=== PATIENT | male | born 1965 ===

== ENCOUNTER 2016-07-05 18:42 | Emergency (ER) | payer MEDICAID, SELFPAY ==
[2016-07-05 18:42] VITALS: BMI 22.3
[2016-07-05 19:11] VITALS: BP 105/75; PULSE 88; RESP 16; TEMP 97.7; O2SAT 100
[2016-07-05] MEDS ORDERED: Sodium Chloride 0.9% 1,000 ML IV STA (19:41)
[2016-07-05] MEDS ORDERED: Insulin Regular 100 units/ml SC STA (19:42)
[2016-07-05] MEDS ORDERED: Insulin Regular 100 units/ml ONE (20:17)
--- NOTE | 2016-07-05 20:23 | ED PDOC ---
Lower Extremity Pain/Injury Time Seen by Provider: 07/05/16 19:38 Chief Complaint (Nursing): Lower Extremity Problem/Injury Chief Complaint (Provider): Lower extremity problem/injury History Per: Patient History/Exam Limitations: no limitations Onset/Duration Of Symptoms: Days (7x) Current Symptoms Are (Timing): Still Present Severity: Moderate Additional Complaint(s): 51 year old male with a pertinent medical history of IDDM presents to the ED with complaints of lower back pain that radiates down his legs that started 1 week ago after he feel off of the toilet. He denies having any other associated symptoms including weakness, paresthesias, and incontinence. He also admits that he has been non compliant with his insulin and DM Rx for over 1x month. PMD: Ana Kim MD Past Medical History Reviewed: Historical Data, Nursing Documentation, Vital Signs Vital Signs: Last Vital Signs Temp 97.7 F 07/05/16 19:01 Pulse 88 07/05/16 19:01 Resp 16 07/05/16 19:01 BP 105/75 07/05/16 19:01 Pulse Ox 100 07/05/16 19:01 - Medical History PMH: Diabetes, Gastritis, HTN, Hypercholesterolemia, Pancreatitis Denies: CHF, Chronic Kidney Disease - Family History Family History: States: Unknown Family Hx - Social History Current smoker - smoking cessation education provided: No Alcohol: None Drugs: Denies - Home Medications Home Medications: Ambulatory Orders Medication Instructions Recorded Aspirin [Bates Aspirin] 81 mg PO DAILY #30 tab.chew 03/25/16 Gabapentin [Neurontin] 300 mg PO HS #0 cap 03/25/16 Atorvastatin [Lipitor] 40 mg PO DAILY #30 tab 06/22/16 GlipiZIDE [Glucotrol] 5 mg PO ACB #30 tab 06/22/16 Insulin Human NPH [Humulin N] 10 units SC QPM #1 vial 06/22/16 Insulin Human NPH [Humulin N] 14 units SC ACB #1 ml 06/22/16 Warfarin [Coumadin] 7.5 mg PO DAILY #15 tab 06/22/16 metFORMIN [glucOPHAGE] 500 mg PO DAILY #30 tab 06/22/16 Metformin HCl [Glucophage] 500 mg PO BID #30 tablet 07/05/16 Naproxen [Naprosyn] 500 mg PO Q12H #20 tab 07/05/16 - Allergies Allergies/Adverse Reactions: Allergies Allergy/AdvReac Type Severity Reaction Status Date / Time No Known Allergies Allergy Verified 07/05/16 19:01 Review of Systems ROS Statement: Except As Marked, All Systems Reviewed And Found Negative Genitourinary Male: Negative for: Incontinence Musculoskeletal: Positive for: Back Pain, Leg Pain (bilateral) Neurological: Negative for: Weakness, Numbness (no tingliness) Physical Exam - Reviewed Nursing Documentation Reviewed: Yes Vital Signs Reviewed: Yes - Physical Exam Appears: Positive for: Well, Non-toxic, No Acute Distress Head Exam: Positive for: ATRAUMATIC, NORMOCEPHALIC Skin: Positive for: Normal Color, Warm, Dry Cardiovascular/Chest: Positive for: Regular Rate, Rhythm, Chest Non Tender Respiratory: Positive for: Normal Breath Sounds. Negative for: Respiratory Distress Back: Negative for: Vertebral Tenderness (no spinal tenderness or deformities) Extremity: Positive for: Other (motor and sensory intact in lower extremities) Neurologic/Psych: Positive for: Alert, Oriented (3x). Negative for: Motor/ Sensory Deficits - Laboratory Results Result Diagrams: 07/05/16 20:30 07/05/16 21:41 - ECG O2 Sat by Pulse Oximetry: 100 (RA) Pulse Ox Interpretation: Normal Medical Decision Making Medical Decision Makin:38 Initial impression: lower back pain and leg pain due to injury Initial plan: * XRay LS spine with OBL * EKG * CMP * udip * CBC * humuLIN R 10units SC * sodium chloride 1,000ml IV 250mls/hr * reevaluation Scribe Attestation: Documented by Ely Walls, acting as a scribe for Kendall Tai MD. Provider Scribe Attestation: All medical record entries made by the Scribe were at my direction and personally dictated by me. I have reviewed the chart and agree that the record accurately reflects my personal performance of the history, physical exam, medical decision making, and the department course for this patient. I have also personally directed, reviewed, and agree with the discharge instructions and disposition. Disposition - Clinical Impression Clinical Impression: Low back pain, Uncontrolled diabetes mellitus - Patient ED Disposition Is Patient to be Admitted: No Counseled Patient/Family Regarding: Studies Performed, Diagnosis, Need For Followup, Rx Given - Disposition Referrals: [facility] [Outside] Disposition: Routine/Home Disposition Time: 23:27 Condition: FAIR Prescriptions: Metformin HCl [Glucophage] 500 mg PO BID #30 tablet Naproxen [Naprosyn] 500 mg PO Q12H #20 tab Instructions: Back Pain (ED), Diabetes Mellitus Type 2 in Adults (ED) Print Language: GREENLANDIC
[2016-07-05 20:54] LABS: BASO # 0.1 K/uL (0.0-0.2); BASO % 1.2 % (0.0-2.0); EOS # 0.1 K/uL (0.0-0.7); EOS % 1.7 % (0.0-4.0); HEMATOCRIT 32.3 % (35.0-51.0); LYMPH # 2.4 K/uL (1.0-4.3); LYMPH % 31.1 % (20.0-40.0); MEAN CELL VOLUME 88.7 fl (80.0-94.0); MEAN CORPUSCULAR HEMOGLOBIN 29.4 pg (27.0-31.0); MEAN CORPUSCULAR HGB CONC 33.1 g/dL (33.0-37.0); MEAN PLATELET VOLUME 8.3 fl (7.2-11.7); MONO # 0.6 K/uL (0.0-0.8); MONO % 7.6 % (0.0-10.0); NEUT # 4.5 K/uL (1.8-7.0); NEUT % 58.4 % (50.0-75.0); RED CELL DISTRIBUTION WIDTH 15.3 % (11.5-14.5); WHITE BLOOD COUNT 7.8 K/uL (4.8-10.8)
[2016-07-05 21:59] LABS: ALKALINE PHOSPHATASE 181 U/L (38-126); ALT/SGPT 35 U/L (21-72); AST/SGOT 25 U/L (17-59); BILIRUBIN,TOTAL 0.3 mg/dl (0.2-1.3); BLOOD UREA NITROGEN 25 mg/dl (9-20); CALCIUM 9.9 mg/dL (8.4-10.2); CARBON DIOXIDE 16 mmol/L (22-30); CHLORIDE 103 mmol/L (98-107); GFR AFRICAN-AMERICAN > 60; GLUCOSE,RANDOM 373 mg/dL (75-110); SODIUM 139 mmol/l (132-148); TOTAL PROTEIN 8.6 G/DL (6.3-8.2)
[2016-07-05 23:26] LABS: ABG ALLEN TEST YES; ARTERIAL BLOOD GAS HCO3 19.4 mmol/L (21-28); ARTERIAL BLOOD GAS MODE ROOM AIR; ARTERIAL BLOOD GAS O2 CAPACITY 14.2 mL/dL (16-24); ARTERIAL BLOOD GAS PH 7.35 (7.35-7.45); ARTERIAL BLOOD GAS PO2 102 mm/Hg (80-100); ARTERIAL BLOOD HGB O2 SAT 95.4 % (95.0-98.0); CARBOXYHEMOGLOBIN 0.7 % (0.5-1.5); HHB 1.3 % (0.0-5.0); METHEMOGLOBIN 2.6 % (0.0-3.0)
--- NOTE | 2016-07-06 08:03 | CARD ---
APPROVED REPORT EKG Measurement Heart [id number] <Conclusion> Normal sinus rhythm Normal ECG
--- NOTE | 2016-07-06 10:51 | RAD ---
PROCEDURE: Radiographs of the Lumbar Spine. HISTORY: trauma r/o fx COMPARISON: Lumbar spine as visualized on CT abdomen and pelvis without contrast performed 06/10/16, lumbar spine radiographs performed 03/24/16 FINDINGS: Alignment appears satisfactory. Mild multilevel degenerative changes. No acute displaced fracture identified. Extensive debris presumed within the gastric lumen limits evaluation of the upper lumbar spine. IMPRESSION: No acute displaced fracture identified. Mild multilevel degenerative changes. Extensive debris presumed within the gastric lumen limits evaluation of the upper lumbar spine.
== END 2016-07-05 23:55 | disposition home or self-care (01) ==
LOC: H.ER 18:42
DX: M54.5 Low back pain (principal); E11.65 Type 2 diabetes mellitus with hyperglycemia; Z79.84 Long term (current) use of oral hypoglycemic drugs; Z79.01 Long term (current) use of anticoagulants; E78.00 Pure hypercholesterolemia, unspecified; I10 Essential (primary) hypertension; Z79.82 Long term (current) use of aspirin